=== PATIENT | male | born 1990 | race Caucasian/White ===

== ENCOUNTER 2024-11-25 07:35 | Emergency (ER) | payer MEDICAID ==
[~2024-11-25] VITALS: Ht 170.2 cm; Wt 72.6 kg
[~2024-11-25 07:35] MED LIST: DOXY100C2 PO; KETO10TA2 PO
[2024-11-25 07:54] VITALS: TEMP 97.9
[2024-11-25] MEDS ORDERED: LORAZEPAM INJ 2 MG/ML VIAL ONE (08:00)
[2024-11-25] MEDS: LORAZEPAM 4 MG/ML VIAL IV ONE (08:07)
[2024-11-25] MEDS: IV NS 0.9% 1,000 ML BAG IV ONE (08:07)
[2024-11-25 08:15] LABS: BASOPHILS % (AUTO) 0.4 % (0.0-2.0); EOSINOPHILS % (AUTO) 0.3 % (0.0-6.0); HEMATOCRIT 52 % (39-51); HEMOGLOBIN 18.3 g/dL (13.5-17.5); LYMPHOCYTES # (AUTO) 0.9 K/uL (0.8-4.8); LYMPHOCYTES % (AUTO) 10.8 % (20.0-44.0); MEAN CORPUSCULAR HEMOGLOBIN 31 PG (26.0-33.0); MEAN CORPUSCULAR HGB CONC 35 g/dl (31.0-36.0); MEAN CORPUSCULAR VOLUME 89 fL (80-96); MONOCYTES # (AUTO) 0.9 K/uL (0.1-1.30); MONOCYTES % (AUTO) 10.4 % (2.0-12.0); NEUTROPHILS # (AUTO) 6.8 K/uL (1.8-8.9); NEUTROPHILS % (AUTO) 78.1 % (43.0-81.0); PLATELET COUNT (AUTO) 367 K/uL (150-450); RED BLOOD CELL COUNT(AUTO) 5.88 MIL/uL (4.5-6.0); RED CELL DISTRIBUTION WIDTH 13.8 % (11.5-15.0); WHITE BLOOD COUNT (AUTO) 8.7 K/uL (4.3-11.0)
[2024-11-25 08:23] LABS: CALCIUM, SERUM 10.3 mg/dL (8.5-10.1); CREATININE 1.3 mg/dL (0.6-1.3)
[2024-11-25 09:38] VITALS: BP 130/96; O2SAT 96
== END 2024-11-25 09:38 | disposition home or self-care (01) ==
LOC: ER 08:02
DX: R06.4 Hyperventilation (principal); E86.0 Dehydration; R00.2 Palpitations; R11.2 Nausea with vomiting, unspecified; R06.02 Shortness of breath
CPT/HCPCS: 99285; 96374; 71045; 96361; 93005 ×2; 85025; 80048; 83735; 36415; J2060 ×2; J7030